=== PATIENT | female | born 1950 | race Caucasian/White ===

== ENCOUNTER 2019-10-08 09:00 | Outpatient (RCR) | payer MEDICARE, SELFPAY ==
--- NOTE | 2019-08-25 14:13 | PTOPEVAL ---
PHYSICAL THERAPY EVALUATION AND PLAN OF CARE Thank you for referring this patient to [facility]. Consuelo is scheduled to be seen 2x/week for 4 weeks. Please review, sign, date and return this plan of care MORRIS. I agree with and certify that the following plan of care is medically necessary. Referring Physician Date Attending Provider: Pablo Ferrer MD Evaluation Outpatient Past Medical History Gastrointestinal History Hx Gastroesophageal Reflux Disease Yes Musculoskeletal History Hx Arthritis Yes Hx Joint Replacement Yes: right TKA 08/18/2019 Hx Orthopedic Surgery Yes: RT KNEE ARTHROSCOPY X2 Endocrine History Hx Hypothyroidism Yes HEENT History Hx Tonsillectomy Yes: A CHILD Hx Other HEENT Disorders Yes: GLASSES Integumentary History Hx Other Skin Disorders Yes: ROSACEA Psychosocial History Hx Anxiety Yes Hx Depression Yes Problem Diagnosis right TKA Onset 08/18/2019 Subjective Information Consuelo is here 1 week s/p right Query Text:As Reported By Patient/ TKA. She reports a moderate Family to high amount of pain, but exhibits a good nature. She is sleeping better than she was when she initially came home from the hospital. Prior Level of Function Activity Level (Last 3 Months) Activity of Daily Living Ability Independent Indoor/Home Mobility Independent Community Mobility Independent Stairs Ability Independent Functional Cognition (Planning, Shopping Independent , Taking Medications) Home Setting Home Type Single Level Environmental Barriers Railing, Bilateral,Stairs, 2-4 Living Situation With Spouse Pain Assessment Right Knee(s) Reported Pain Level 7 Pain Description Aching,Dull Pain Frequency Acute,Continuous Current Pain Intensity 7 Lowest Pain Intensity 5 Greatest Pain Intensity 8 Pain Score Pain Score 7: Self Report Knee Range of Motion Right Knee Flexion Range of Motion - Active 112 Knee Extension Range of Motion - Active 4 Query Text: Hip Strength Right Hip Flexion Strength 4+ Good + Hip Abduction Strength 3+ Fair + Knee Strength Right Knee Flexion Strength 4 Good Knee Extension Strength 4- Good - Palpation nontender throughout; significant bruising noted posterior thigh from groin to knee Extremity Circumference Assessment
--- NOTE | 2019-09-15 10:54 | PTOPEVAL ---
PHYSICAL THERAPY PLAN OF CARE UPDATE AND PROGRESS REPORT Thank you for referring this patient to [facility]. Consuelo has participated in 7 visits of physical therapy. I recommend continuing skilled PT 2x/week for 3 weeks in order to promote optimal gait patter, stair climbing, and optimal strength for rn long term care optimal function. Please review, sign, date and return this plan of care MORRIS. I agree with and certify that the following plan of care is medically necessary. Referring Physician Date Attending Provider: Pablo Ferrer MD Evaluation Information Diagnosis right TKA Onset 08/18/2019 Subjective Information Consuelo is here 4 weeks s/p Query Text:As Reported By Patient/ right TKA. She reports only Family taking one pain medication during the day, but pain is worst at night. She reports some tossing and turning. She is not yet driving. Self Report Pain Assessment Right Knee(s) Reported Pain Level 3 Pain Description Aching,Dull,Tightness Pain Frequency Acute Pain Behaviors Anxious Interventions Used By Clinicians Exercise Lower Extremity Range of Motion Knee Range of Motion Right Knee Flexion Range of Motion - Active 119deg Knee Extension Range of Motion - Active 0deg Hip Strength Right Hip Flexion Strength 5 Normal Hip Abduction Strength 3+ Fair + Knee Strength Right Knee Flexion Strength 5 Normal Knee Extension Strength 4+ Good + Palpation Assessment trigger points to right anterior tibialis; mild scar adhesions, especially distally Gait Assessment Ambulation Assistive Devices Cane Weight Bearing Status - Left Full Weight Bearing Status - Right As Tolerated Maintains Weight Bearing Status Yes Ambulation Ability Independent Gait Pattern Assessment Gait Pattern Circumducted Gait Other Gait Observations mild circumduction on right that corrects upon command; commands needed to push off toe and to bend knee through swing phase Clinical Summary Consuelo is a 69 yo female presenting to outpatient physical therapy 4 weeks s/p right TKA. Consuelo continues to present with mld strength deficits and balance deficits that lend to abnormal gait pattern and and limited ability to perform stair
--- NOTE | 2019-10-08 09:57 | PTOPEVAL ---
PHYSICAL THERAPY DISCHARGE REPORT Thank you for referring this patient to [facility]. I recommend Consuelo discharge from PT at this time. She does have a HEP to progress strengthening. Please review, sign, date and return this Discharge Summary MORRIS. I agree with and certify that the following plan of care is medically necessary. Referring Physician Date Attending Provider: Pablo Ferrer MD Diagnosis right TKA Onset 08/18/2019 Subjective Information Consuelo is here 7 weeks s/p Query Text:As Reported By Patient/ right TKA. Reports that night Family pain is improving and she is feeling more comfortable all the time. Pain Assessment Self Report Pain Assessment Right Knee(s) Reported Pain Level 3 Pain Description Aching Pain Behaviors Anxious Interventions Used By Clinicians Exercise Knee Range of Motion Right Knee Flexion Range of Motion - Active 121 Knee Extension Range of Motion - Active 0 Query Text: Hip Strength Right Hip Flexion Strength 5 Normal Hip Abduction Strength 4- Good - Knee Strength Right Knee Flexion Strength 5 Normal Knee Extension Strength 5 Normal Edema Assessment Right Knee Type Non-Pitting Edema Degree 1+ (2 mm or less) Extremity Circumference Assessment Location Right Body Part Knee Site Descriptor ([place]) suprapatellar Circumference (cm) 40 Noninvolved Side Circumference (cm) 40 Gait Assessment Ambulation Assistive Devices None Weight Bearing Status - Left Full Weight Bearing Status - Right Full Ambulation Distance throughout clinic Query Text:(Feet) Stair Climbing Assessment Stair Climbing Assistive Devices Railings Weight Bearing Status - Left Full Weight Bearing Status - Right As Tolerated Maintains Weight Bearing Status Yes Number of Steps Climbed (Steps) 4 Number of Repetitions (Repetitions) 3 Technique Alternating Steps Stair Climbing Direction Both Up and Down Stair Climbing Ability Independent Ability to Step Over a Curb Independent Stair Climbing Comments encouraged to perform stair climbing at home; laundry is in the basement and I instructed her to start small when carrying items Clinical Summary Consuelo is a 69 yo female presenting to outpatient physical therapy 7 weeks s/p right TKA. Consuelo has met or
== END 2019-10-08 10:26 | disposition home or self-care (01) ==
LOC: ANHPT 09:00
PROVIDERS: PCP Internal Medicine; Visit Provider Orthopaedic Surgery
DX: M17.11 Unilateral primary osteoarthritis, right knee (principal)
CPT/HCPCS: 97110; 97161

== ENCOUNTER 2020-01-19 08:20 | Outpatient (CLI) | payer MEDICARE, SELFPAY ==
--- NOTE | ~2020-01-19 | MM_ITS ---
EXAMINATION: MM screening apolonia BI w jacobo HISTORY: Screening mammogram TECHNIQUE: Craniocaudal and mediolateral oblique 3-D tomosynthesis images were obtained and synthetic 2-D images were generated. CAD analysis was submitted and interpreted. COMPARISON: 04/22/2019, 11/12/2018 diagnostic left mammogram examinations 11/12/2018 limited left breast ultrasound 10/29/2018 bilateral digital screening mammogram 10/30/2017 diagnostic right digital mammogram 10/15/2017 bilateral digital screening mammogram 08/12/2016 bilateral digital screening mammogram BREAST PARENCHYMAL COMPOSITION: The breasts are extremely dense, which lowers the sensitivity of mamm ography. FINDINGS: There are 2 biopsy markers in the right breast and one biopsy marker on the left; history o f prior bilateral benign breast biopsies. Stable mild fibroglandular asymmetry. There are scattered bilateral benign calcifications. There is no evidence of suspicious mass, calcifi cation, or architectural distortion to suggest malignancy in either breast. There has been no suspici ous interval change. IMPRESSION: 1. No mammographic evidence of malignancy. 2. Recommend routine screening mammography in one year. BI-RADS Category 2: Benign finding(s). Reviewed, dictated and finalized at location A.
== END 2020-01-19 08:21 | disposition home or self-care (01) ==
LOC: ANHIMG 08:22
PROVIDERS: PCP Internal Medicine; Visit Provider Nurse Practitioner
DX: Z12.31 Encounter for screening mammogram for malignant neoplasm of breast (principal)
CPT/HCPCS: 77063; 77067

== ENCOUNTER 2020-10-21 11:46 | Outpatient (CLI) | payer MEDICARE, SELFPAY | END 2020-10-21 11:47 | disposition home or self-care (01) | LOC: ANHCOVIDVC 11:46 | PROVIDERS: PCP Internal Medicine | DX: Z23 Encounter for immunization (principal) | CPT/HCPCS: 0001A; 91300 ==

== ENCOUNTER 2020-11-11 11:35 | Outpatient (CLI) | payer MEDICARE, SELFPAY | END 2020-11-11 11:36 | disposition home or self-care (01) | LOC: ANHCOVIDVC 11:35 | PROVIDERS: PCP Internal Medicine | DX: Z23 Encounter for immunization (principal) | CPT/HCPCS: 0002A; 91300 ==

== ENCOUNTER 2020-11-25 09:25 | Outpatient (CLI) | payer MEDICARE, SELFPAY ==
--- NOTE | ~2020-11-25 | MR_ITS ---
EXAMINATION: MR knee LT wo con DATE: 11/25/2020 10:26 INDICATION: Unilateral primary osteoarthritis of the left knee. TECHNIQUE: Magnetic resonance imaging (MRI) of the left knee was performed without intravenous contra st. Sequences included coronal PD-weighted FSE, coronal PD-weighted FS FSE, sagittal T2-weighted FSE , sagittal PD-weighted FS FSE and axial PD weighted fat saturated FSE. COMPARISON: None. FINDINGS: Medial compartment: The posterior horn of the medial meniscus is small with a defect involving the inner free edge which appears truncated consistent with osseous/displacement of meniscal tissue. There is a longitudinal ho rizontal tear plane in the posterior body of the medial meniscus. Extensive full and near full-thickn ess cartilage loss along the anterior to central weightbearing medial femoral condyle with mild irreg ularity to the articular cortex and mild subarticular edema. Additional full thickness cartilage loss at the central to anterior medial tibial plateau where there is mild subarticular edema and suggesti on of early remodeling with slightly increasing concavity to the articular cortex. Lateral compartment: Lateral meniscus is normal. Deep chondral fissuring without degenerative subchondral changes at the a nterior weightbearing lateral femoral condyle. Deep chondral ulceration with subarticular edema along the intercondylar eminence along the medial side of the lateral tibial plateau. Chondral fissuring i nvolving less than 50% the cartilage thickness at the central to posterior lateral tibial plateau. Patellofemoral compartment: Deep chondral ulceration with mild subarticular edema at the medial patellar facet and apical ridge. A severe partial thickness cartilage loss with chondral surface irregularity along the lateral patell ar facet with more prominent underlying subarticular edema and cystic change at the inferior aspect o f the lateral facet. Partial-thickness cartilage loss with mild chondral surface irregularity without degenerative subchondral changes at the trochlear groove and with subtle irregularity to the underly ing articular cortex at the medial trochlea. Ligaments and tendons: The anterior cruciate ligament appears thickened with increased signal extending along the ligament f ibers which appear somewhat lax with posterior bowing and following a shallower course than Blum[place] t line consistent with at least partial tear. The posterior cruciate ligament is normal. The medial c ollateral ligament and fibular collateral ligament complex are normal. Patellar tendon is normal. Sma ll enthesophytes and minimal tendinopathy at the patellar insertion of the distal quadriceps tendon. The visualized medial and lateral hamstring tendons as well as the iliotibial band are normal. Fluid: Physiologic amount of fluid in the joint space. No loose osteochondral bodies identified. Moderate-si zed Lino's cyst measuring 4.6 cm in craniocaudal length and up to 2.0 x 1.4 cm in maximal transaxial dimensions. Osseous/other: Normal marrow signal aside from the previous noted mild degenerative subarticular changes. No fractur e or pathologic marrow replacing process. IMPRESSION: 1. Complex tear of the posterior horn and posterior body of the medial meniscus. 2. Severe medial compartment predominant tricompartmental osteoarthritis with regions of high-grade c hondromalacia in all 3 compartments. 3. At least partial tear of the anterior cruciate ligament. 4. Moderate-sized Lino's cyst. Reviewed, dictated and finalized at location B. IMPRESSION: 1. Complex tear of the posterior horn and posterior body of the medial meniscus . 2. Severe medial compartment predominant tricompartmental osteoarthritis with r egions of high-gr
== END 2020-11-25 09:26 | disposition home or self-care (01) ==
PROVIDERS: PCP Internal Medicine; Visit Provider Orthopaedic Surgery
DX: M17.12 Unilateral primary osteoarthritis, left knee (principal); M71.22 Synovial cyst of popliteal space [Baker], left knee; S83.232A Complex tear of medial meniscus, current injury, left knee, initial encounter; X58.XXXA Exposure to other specified factors, initial encounter
CPT/HCPCS: 73721

== ENCOUNTER → 2021-01-21 14:53 | Outpatient (CLI) | payer MEDICARE, SELFPAY ==
--- NOTE | ~2021-01-21 | MM_ITS ---
EXAMINATION: MM screening apolonia BI w jacobo HISTORY: Screening TECHNIQUE: Craniocaudal and mediolateral oblique 3-D tomosynthesis images were obtained and synthetic 2-D images were generated. CAD analysis was submitted and interpreted. COMPARISON: Comparison to multiple prior studies sequentially, with oldest reviewed study dated 10/15. BREAST PARENCHYMAL COMPOSITION: The breasts are extremely dense, which lowers the sensitivity of mamm ography FINDINGS: There is no evidence of suspicious mass, calcification, or architectural distortion to sugg est malignancy in either breast. There has been no suspicious interval change. IMPRESSION: 1. No mammographic evidence of malignancy. 2. Recommend routine screening mammography in one year. BI-RADS Category 1: Negative Reviewed, dictated and finalized at location A.
== END ==
PROVIDERS: PCP Internal Medicine; Visit Provider Obstetrics & Gynecology Gynecology
DX: Z12.31 Encounter for screening mammogram for malignant neoplasm of breast (principal)
CPT/HCPCS: 77063; 77067

== ENCOUNTER 2021-08-02 07:43 | Outpatient (CLI) | payer MEDICARE, SELFPAY ==
--- NOTE | 2021-08-02 08:49 | ECG_ITS ---
Measurements Intervals [place] Rate: 71 P: 45 AZ: 193 QRS: 24 QRSD: 67 T: 38 QT: 365 QTc: 399 Interpretive Statements SINUS RHYTHM CANNOT RULE OUT SEPTAL INFARCT, AGE INDETERMINATE BASELINE ARTIFACT- I, II, III, AVR, AVL, AVF, V4-V6 ABNORMAL ECG Electronically Signed On 08-02-2021 9:15:46 [employer] by Asher Nichols D.O.
[2021-08-02 11:10] LABS: Eosinophils Absolute Auto 0.1 K/mm3 (0-0.3); Eosinophils Percent Auto 3.4 % (0-4.4); Hematocrit 39.3 % (37.0-47.0); Hemoglobin 12.5 g/dL (12.0-15.0); Immature Granulocyte Absolute 0.01 K/mm3 (0.00-0.031); Immature Granulocyte Percent A 0.3 % (0-0.5); Lymphocytes Absolute Auto 0.47 K/mm3 (0.9-3.2); Lymphocytes Percent Auto 12.3 % (18.3-44.2); Mean Corpuscular HGB Conc 31.8 g/dl (32-36); Mean Corpuscular Hemoglobin 30.6 pg (26-34); Mean Corpuscular Volume 96.3 fl (80-100); Mean Platelet Volume 11.6 fl (7.4-10.4); Monocytes Absolute Auto 0.3 K/mm3 (0.1-0.6); Monocytes Percent Auto 7.8 % (2.6-8.5); Neutrophils Absolute Auto 2.9 K/mm3 (1.3-6.7); Neutrophils Percent Auto 75.2 % (45.5-73.1); Platelet Count Result 221 k/mm3 (150-375); Red Blood Count 4.08 M/mm3 (4.2-5.4); Red Cell Distribution Width 12.9 % (11.5-14.5); White Blood Count 3.8 K/mm3 (4.5-10.0)
[2021-08-02 11:27] LABS: Hemoglobin A1C 5.2 % (<5.7)
[2021-08-02 11:46] LABS: Urine Cotinine NEGATIVE
== END 2021-08-02 07:44 | disposition home or self-care (01) ==
LOC: ANHSURGERY 07:47
PROVIDERS: PCP Internal Medicine; Visit Provider Orthopaedic Surgery
DX: Z01.818 Encounter for other preprocedural examination (principal); M17.12 Unilateral primary osteoarthritis, left knee; R94.31 Abnormal electrocardiogram [ECG] [EKG]; Z51.81 Encounter for therapeutic drug level monitoring; Z79.899 Other long term (current) drug therapy
CPT/HCPCS: 80307; 83036; 85025; 87081; 93005

== ENCOUNTER 2021-08-04 08:56 | Outpatient (CLI) | payer MEDICARE, SELFPAY ==
--- NOTE | ~2021-08-04 | NM_ITS ---
EXAMINATION: NM idalmis stress w perfusion DATE: 08/04/2021 11:22 INDICATION: Abnormal electrocardiogram. Preop. TECHNIQUE: Rest images were obtained following intravenous administration of 10.4 mCi Tc99m tetrofosm in (Myoview). The patient was infused intravenously with Lexiscan (regadenoson). Then, 30.7 mCi Tc99m tetrofosmin (Myoview) was administered intravenously, and stress images were obtained. Data was ganesh nstructed into short axis and horizontal and vertical long axis SPECT images. Gated SPECT images were also obtained. COMPARISON: None. FINDINGS: There is no definite reversible or fixed perfusion abnormality to suggest ischemia or infar ction. There is no segmental wall motion abnormality. Left ventricular ejection fraction measures > 70%. IMPRESSION: 1. No definite ischemia or infarct. 2. Normal left ventricular ejection fraction measuring >70%. Reviewed, dictated and finalized at location A. ESTATE INSTRUCTOR
--- NOTE | 2021-08-04 09:22 | EST_ITS ---
Patient Info Name: Consuelo Borges Age: 71 years : 1950 Gender: Female Ht: 65 in Wt: 153 lbs BSA: 1.80 m2 HR: 73 bpm BP: 126 / 77 mmHg Heart Rhythm: Sinus Rhythm Exam Date: 08/04/2021 9:57 AM Exam Location: [facility] Stress Patient Status: Outpatient Admit Date: 08/04/2021 Staff Ordering Physician: Figueroa Chino DO Attending Provider: Figueroa Chino DO Exercise Technologist: Debi Villalta CT Exercise Physician: Asher Nichols DO Exam Type: CA stress idalmis w NM Study Info Indications Z01.810 - Encounter for preprocedural cardiovascular examination R94.31 - Abnormal electrocardiogram ECG EKG A regadenoson stress test was performed. Summary 1. 1. Negative lexiscan stress test for ischemic ST changes by ECG criteria. 2. 2. Stable hemodynamics throughout the test. 3. 3. Nuclear scan to follow and will be reported separately. Please correlate with it. 4. 4. Patient informed of the above results. Protocol: Lexiscan Stress ECG Details Stage: REST Duration (min): 1 min : 5 sec HR (bpm): 76 SBP (mmHg): 126 DBP (mmHg): 77 Stage: REST Duration (min): 21 min : 59 sec HR (bpm): 82 SBP (mmHg): 126 DBP (mmHg): 77 Stage: STAGE 1 Duration (min): 0 min : 59 sec HR (bpm): 106 SBP (mmHg): 137 DBP (mmHg): 76 Stage: RECOVERY Duration (min): 1 min : 0 sec HR (bpm): 103 SBP (mmHg): 137 DBP (mmHg): 76 Stage: RECOVERY Duration (min): 2 min : 0 sec HR (bpm): 103 SBP (mmHg): 137 DBP (mmHg): 76 Stage: RECOVERY Duration (min): 3 min : 0 sec HR (bpm): 96 SBP (mmHg): 138 DBP (mmHg): 70 Stage: RECOVERY Duration (min): 3 min : 24 sec HR (bpm): 93 SBP (mmHg): 138 DBP (mmHg): 70 Rest HR: 82 bpm Peak HR: 110 bpm Rest Sys BP: 126 mmHg Peak Sys BP: 138 mmHg Max Pred HR: 149 bpm % Max Pred HR: 74 % Target HR: 127 bpm Max RPP: 15,180 bpm*mmHg Termination Reason: Completed protocol Cardiac Symptoms: Shortness of breath Total Time: 1 min : 0 sec Rest Kenney BP: 77 mmHg Peak Kenney BP: 70 mmHg Total Dose: 0.4 mg Resting ECG Sinus rhythm. Stress ECG No ST change. Arrhythmias None. Report Signatures
== END 2021-08-04 08:57 | disposition home or self-care (01) ==
LOC: ANHCARD 08:59
PROVIDERS: PCP Internal Medicine; Visit Provider Internal Medicine
DX: R94.31 Abnormal electrocardiogram [ECG] [EKG] (principal)
CPT/HCPCS: 78452; 93017; A9502; J2785

== ENCOUNTER 2021-08-15 01:30 | Day surgery (SDC) | payer MEDICARE, SELFPAY ==
[2021-08-02 08:08] VITALS: BP 120/80; PULSE 80; RESP 16; TEMP 36.9; O2SAT 97; BMI 25.0
--- NOTE | 2021-08-02 08:23 | PC.NURSE ---
Report to the Outpatient Waiting Room, entrance under the green pavilion located off [facility], at time ____8:30AM___ on date _08/15/21____. OR Time: ___10:30AM . - You and your visitor will be asked a series of questions to screen for COVID 19 for your protection. - A mask is required within the hospital. - Only one visitor is allowed at this time. Patient visitors will be guided where to wait when not with patient. Preoperative COVID Testing Requirements: No COVID Test needed if: (proof is required; if not received patient will have Rapid Test prior to entry) - Patient has received COVID Vaccine at least 14 days prior to procedure date or - Patient has positive COVID test result within last 90 days of surgery date. COVID Test needed if above criteria is not met If not COVID vaccinated a COVID test must be conducted within 72 hours of surgery and patient is asked to isolate self from time of testing until procedure. You will go to the [facility] for your COVID testing. The [facility] site is located at the corner of [address] [facility]. You will only be called if COVID results are positive and your surgeon may reschedule your elective surgery date. Patients may have clear liquids (water, carbonated beverages, clear teas, apple juice) until 3 hours prior to surgery with a maximum of 20 ounces. - No food from midnight until time of surgery - Infants may have breast milk until 4 hours before surgery, infant formula 6 hours prior to surgery. - Children will be allowed to drink immediately following surgery. If applicable, please bring a bottle or sippy cup to assist with drinking. Juice, water, soda, and popsicles are readily available. For infants on formula, please bring formula the day of surgery. Pacifiers are allowed. Take the following medications with a SIP of water the morning of surgery: ___ALPRAZOLAM NEEDED, LEVOTHYROXINE, PAROXETINE Medications to discontinue per physician ALL VITAMINS/SUPPLEMENTS 3 DAYS PRE-OP Date to take last dose 08/12/21 Please no make-up, nail upper sorbian, hairspray, perfume, deodorant, or body powder the day of surgery. No jewelry (including any body piercings) or valuables the day of surgery, leave them at home. Please take a shower or bath the night before, or the morning of, surgery with an antibacterial soap. Wear comfortable, loose fitting clothing. Children are encouraged to wear pajamas. - Jewelry must be removed prior to entering the operating room. Rings and piercings that are not removed may be cut off. - The hospital will not accept responsibility for valuables. - Please leave all valuables, including medications, at home the day of surgery. If you are going home after surgery, a licensed security patrol driver must drive you home. - NO public transportation without another adult. - We recommend that an adult stay with you for 24 hours following discharge. - We also recommend that you do not drive, make important decision, drink alcoholic beverages, or take any drugs that were not prescribed by your health care provider for at least 24 hours after your discharge time. For Pediatric surgeries, we recommend two adults accompany the child home (only one inside the building at this time). Follow any additional instructions given to you from your surgeon. Telephone instructions given to ___PATIENT and asked if any additional questions and then verbalized understanding. Patient advised to call surgeon office or pre surgery nurse liaison [phone] if any additional questions.
[2021-08-15] VITALS (11 sets, daily range): BP systolic 106–138; BP diastolic 46–75; PULSE 66–86; RESP 12–19; TEMP 36.6–37.3; O2SAT 95–100
--- NOTE | ~2021-08-15 | XR_ITS ---
EXAMINATION: XR knee LT 2V DATE: 08/15/2021 14:56 INDICATION: Postoperative evaluation following left total knee arthroplasty. TECHNIQUE: Anteroposterior and lateral views of the left knee were obtained. COMPARISON: None. FINDINGS: Left total knee arthroplasty with patellar resurfacing appears well seated and in near anatomic align ment. No fractures identified. Expected postoperative subcutaneous, intramedullary and intra-articul ar gas. IMPRESSION: 1. Left total knee arthroplasty, negative for postoperative purposes. Reviewed, dictated and finalized at location . [facility]TE [facility]ER
--- NOTE | 2021-08-15 08:19 | WPDANESEPPF ---
Anes - Initial Pre Proc Eval Procedure: Operation Date: 08/15/21 10:30 Proposed Procedures p Left Total Knee Arthroplasty - Pablo Ferrer MD Date/Time: 08/15/21 08:19 Surgeon: Pablo Ferrer MD Pre Op Diagnosis: left knee OA Patient Data Age: 71 Gender: F Height: 1.66 m Weight: 69.4 kg Last Vital Signs Temp 36.9 C 08/02/21 08:08 Pulse 80 08/02/21 08:08 Resp 16 08/02/21 08:08 BP 120/80 08/02/21 08:08 Pulse Ox 97 08/02/21 08:08 Allergies Allergy/AdvReac Type Severity Reaction Status Date / Time adhesive AdvReac Mild itching Verified 08/15/21 10:11 and redness Home Medications Medication Instructions Recorded Confirmed Type metronidazole 0.75 % topical cream 1 applic TOPICAL BID 07/29/19 08/15/21 History pimecrolimus 1 % topical cream 1 applic TOPICAL BID 07/29/19 08/15/21 History [place]-3 1 cap PO DAILY 08/08/19 08/15/21 History PreserVision AREDS-2 1 tablet PO BID 08/08/19 08/15/21 History Systane (PF) 1 drp OPHTHALMIC (EYE) Q12H 08/08/19 08/15/21 History cholecalciferol (vitamin D3) 1,250 1,250 mcg PO DIRECTED cap 07/27/21 08/15/21 History mcg (50,000 unit) capsule doxycycline hyclate 20 mg tablet 20 mg PO BID tablet 07/27/21 08/15/21 History lansoprazole 15 mg delayed 15 mg PO BID tablet 07/27/21 08/15/21 History release,disintegrating tablet paroxetine HCl 40 mg tablet 40 mg PO BID tablet 07/27/21 08/15/21 History alprazolam 0.5 mg PO TID PRN 08/02/21 08/15/21 History levothyroxine 100 mcg PO QAM 08/02/21 08/15/21 History pravastatin 40 mg PO DAILY 08/02/21 08/15/21 History rivaroxaban 10 mg tablet 10 mg PO DAILY #14 tablet 08/09/21 08/15/21 Rx Patient hx anesthesia problems: none Family hx anesthesia problems: none Results Review: All pre-operative results and documents have been reviewed as part of the pre-operative evaluation. [facility] Past Medical History Medical History Anxiety and depression BMI 22.0-22.9, adult Dyslipidemia GERD (gastroesophageal reflux disease) Hypothyroidism Osteoarthritis of left knee Rosacea Screening for colon cancer Vitamin D deficiency Surgical History Surgical History History of bunionectomy History of right knee surgery Arthroscopy x2. History of tonsillectomy Status post total knee replacement Right - July 2019 Family History Family History Mother Family history of diabetes mellitus in first degree relative Family history of coronary artery disease Acute myocardial infarction Father Family history of coronary artery disease Family history of heart disease in male family member before age 55 Sibling Family history of coronary artery disease Family history of hypothyroidism Other Family history of cardiovascular disease Hypertension Social History Social History Social History: The patient lives in [place] with her , Aroldo and their cat. 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 She designates her as her surrogate decision maker and she wishes to be a full code. No alcohol or drug abuse. Smoking status: Never smoker Second hand tobacco smoke exposure: No Alcohol intake: current Drinks per week: 3 Substance use: never Substance use type: does not use Living arrangements: with family Additional living arrangements comments: SCOUT Gender identity (if verbalized by the patient): Female Sexual Orientation (if Verbalized by the Patient): Straight or Heterosexual Spiritual care concerns: Yes (JEHOVAH WITNESS) Anes - Eval Final PreProcedure Day of Procedure 08/15/21 08:19 Patient weight: overweight Heart: regular rate and rhythm Lungs: clear to auscultation and normal air movement Airway: Mallampati scale clas
--- NOTE | 2021-08-15 08:20 | WPDANESPNB ---
Anes - Peripheral Nerve Block Date/Time: 08/15/21 08:20 I have discussed with the patient/family/POA the placement of a peripheral nerve block for post-operative pain management, including associated risks, benefits, complications, and side effects. Alternative methods of post-operative analgesia were detailed. Questions were solicited and answers provided to the satisfaction of the patient/family/POA. Time-Out: A pre-procedural Time-Out was completed immediately before starting the procedure and confirmed: Patient Identification, Site, Procedure, Patient Position and the Availability of Requisite Equipment. Clinical Indications: Acute post-operative pain management requested by the operative surgeon. Nerve Block Insertion Note Anes-nerve block: adductor canal left Patient position: supine Skin prep: chlorhexidine Needle: 22 gauge, stimulating, insulated echogenic needle. Needle length: 80 mm Technique: ultrasound Injectate: bupivacaine 0.5% with epi 5 mcg/ml (30cc - no epi) Observations: tolerated well Complications: none Procedure start time:: 104 Procedure end time:: 1045
[2021-08-15] MEDS: LACTATED RINGERS 1,000 ML 30 ML IV CONT ×2 (09:15→13:53)
[2021-08-15] MEDS: ACETAMINOPHEN 500 MG TABLET 1000 MG PO (09:24)
[2021-08-15] MEDS: TRANEXAMIC ACID 1,000MG/ISO100 1,000 MG/100 ML BAG 200 MG IVPB (09:24)
--- NOTE | 2021-08-15 10:03 | WPDHPUPDATE1 ---
History and Physical Update Update Date/Time: 08/15/21 10:03 History and Physical has been reviewed, including an updated exam of the patient. There are NO changes in the patient's condition. Risks, benefits, and alternatives have been discussed and questions answered. Patient agrees to proceed with procedure.
[2021-08-15 11:06] LABS: Basophils Percent Auto 0.8 % (0.2-1.2); Eosinophils Absolute Auto 0.1 K/mm3 (0-0.3); Eosinophils Percent Auto 1.9 % (0-4.4); Hematocrit 36.7 % (37.0-47.0); Hemoglobin 11.9 g/dL (12.0-15.0); Immature Granulocyte Absolute 0.02 K/mm3 (0.00-0.031); Immature Granulocyte Percent A 0.4 % (0-0.5); Lymphocytes Absolute Auto 0.53 K/mm3 (0.9-3.2); Lymphocytes Percent Auto 10.3 % (18.3-44.2); Mean Corpuscular HGB Conc 32.4 g/dl (32-36); Mean Corpuscular Hemoglobin 30.5 pg (26-34); Mean Corpuscular Volume 94.1 fl (80-100); Mean Platelet Volume 11.4 fl (7.4-10.4); Monocytes Absolute Auto 0.4 K/mm3 (0.1-0.6); Neutrophils Absolute Auto 4.1 K/mm3 (1.3-6.7); Neutrophils Percent Auto 79.6 % (45.5-73.1); Platelet Count Result 164 k/mm3 (150-375); Red Cell Distribution Width 12.6 % (11.5-14.5); White Blood Count 5.1 K/mm3 (4.5-10.0)
[2021-08-15] MEDS: ceFAZolin 2 GM/D5W 50 ML 2 GM/50 ML BAG IVPB ×2 (11:23→18:36)
[2021-08-15] MEDS: ceFAZolin SODIUM 1 GM VIAL IV PUSH (13:06)
--- NOTE | 2021-08-15 14:32 | P.OP_ITS ---
Procedure Note - Detailed Date of Procedure 08/15/21 Pre-op Diagnosis left knee OA Post-op Diagnosis same Procedure Performed Left total knee replacement Surgeon Pablo Ferrer MD [employer] [place] Anesthesia regional and spinal Description of Procedure The patient was identified and proper site identified. In the preop holding area the anesthesia team performed a left sub sartorial block after which the patient was taken to the operating room and transferred to the OR table positioning supine taking care to pad the torso and extremities. After a spinal anesthetic was administered a nonsterile tourniquet was placed high on the left thigh. The left lower extremity was prepped and draped in the usual sterile fashion. The extremity was exsanguinated and with the knee flexed tourniquet was inflated to 300 mmHg remaining up for approximately 57 minutes. An anterior midline incision was made and a modified medial parapatellar approach was used. Infra and suprapatellar fat pads were excised. Patella was resected leaving 15 mm thickness and prepared for the 31 round three peg component. Using the intramedullary guide the distal femur was cut in the proper orientation for the size 62.5 femoral component. Using the extramedullary guide the tibia was cut perpendicular to the long axis protecting collateral ligaments and popliteal structures. It was sized to a 67. Flexion and extension gaps were balanced. Trial reduction was undertaken and the weight-bearing line was noted to passed through the center of the joint. Proximal tibia was drilled and punched in the proper orientation for the real component. Trial components were removed. The bone surfaces were washed with pulsatile lavage and dried. The real components were cemented simultaneously. The knee was held in extension and the patella held clamped until the cement had cured. Excess cement was removed from the joint. After trialing it was determined that the 11 mm insert gave full range of motion from 0-120 degrees of flexion and the patella tracked in the femoral groove with no lift-off. After final lavage the joint the real 11 insert was placed and secured with a locking bar. A Betadine and saline wash was placed into the wound and allowed to sit for approximately 3 minutes and then evacuated. Periarticular tissues were infiltrated with 60 cc of the arthroplasty solution. 1 g of tranexamic acid was left in the wound. The extensor mechanism was repaired with #2 Vicryl suture and 0 looped PDS suture. Subcu was reapproximated with 3-0 Monocryl, 2-0 Stratafix and tissue adhesive for the skin. A sterile dressing was applied. She tolerated the procedure well, was awakened and extubated, transferred to the bed and was taken to recovery area in stable condition. There were no known intraoperative complications. Perioperative antibiotics were administered. Estimated Blood Loss 100 Tourniquet Time 57 Drains No Packing No Pathology none sent Complications No immediate complications Condition stable Disposition PACU
--- NOTE | 2021-08-15 15:20 | ADMGEN ---
This patient, Consuelo Borges, was admitted to [facility]. Patient/family oriented to hospital policies and general routines including ID bracelet, bed and alarms, visiting hours, pain management, procedures, bathroom and other care routines, personal items, smoking policy, room service/diet, and visiting hours. Information on how to activate the Rapid Response Team has been discussed. Patient/Family are encouraged to report perceived risks to care and to ask questions if they do not understand what they are told or what they should do.
--- NOTE | 2021-08-15 15:30 | WPDCN ---
Assessment and Plan Assessment and plan (1) Osteoarthritis of left knee: Qualifiers: Osteoarthritis type: primary Qualified Code(s): M17.12 - Unilateral primary osteoarthritis, left knee Code(s): M17.12 - Unilateral primary osteoarthritis, left knee Status: Chronic Assessment and Plan: Postoperative day 0 status post left total knee replacement. Wound care, pain control, DVT prophylaxis will be deferred to Dr. Ferrer. (2) Dyslipidemia: Code(s): E78.5 - Hyperlipidemia, unspecified Status: Acute Assessment and Plan: Continue statin check LFTs in a.m. (3) Hypothyroidism: Code(s): E03.9 - Hypothyroidism, unspecified Status: Acute Assessment and Plan: Continue levothyroxine and check TSH. (4) Anxiety and depression: Code(s): F41.9 - Anxiety disorder, unspecified; F32.9 - Major depressive disorder, single episode, unspecified Status: Acute Assessment and Plan: No acute issues. Resume paroxetine. (5) Gastroesophageal reflux disease: Code(s): K21.9 - Gastro-esophageal reflux disease without esophagitis Status: Acute Assessment and Plan: Continue PPI. Additional Plan Thank you for allowing us to participate in this patient's care. Please do not hesitate to contact us with any questions. Supervising physician for this medical consultation is Dr. Paramjit Christian. HPI Data of Consult Date/Time: 08/15/21 15:30 Requesting Physician: Pablo Ferrer MD Primary Care Provider: Figueroa Chino DO Consult Narrative Narrative: This is a 71 year old female with osteoarthritis, hypothyroidism, hyperlipidemia, GERD, and depression with anxiety whom the hospitalist service has been consulted for management of her medical conditions postoperatively. She developed pain in her left knee within the past year or less that has not been amenable to conservative outpatient therapy and thus she elected for replacement today. Her surgery was performed under regional and anesthesia with no immediate complications documented an estimated blood loss of 100 mL. Postoperatively she has had a difficult time getting her pain under control and continues to rate her pain 10/10 after receiving Celebrex and hydrocodone 10 mg. She describes a severe aching pain in the back of the knee. She denies paresthesias, skin color, temperature changes distal to the surgical site. She also denies postoperative fever, chills, sweats, chest pain, shortness of breath, nausea, and vomiting. Review of Systems Review of Systems: Twelve systems were reviewed. No recent cold or flu symptoms. No sick contacts. She believes her chronic medical conditions are well controlled on medication. No history of venous thromboembolism. Except as documented, all other systems were reviewed and are negative her [facility] Past Medical History Medical History (Updated 08/15/21 @ 23:02 by Virgen Salas PA-C) Anxiety and depression Dyslipidemia Gastroesophageal reflux disease Hypothyroidism Rosacea Vitamin D deficiency Surgical History Surgical History (Updated 08/15/21 @ 23:02 by Virgen Salas PA-C) History of bunionectomy History of left knee replacement (08/15/21) History of right knee joint replacement (08/18/19) History of right knee surgery Arthroscopy x2. History of tonsillectomy Family History Family History Mother Family history of diabetes mellitus in first degree relative Family history of coronary artery disease Acute myocardial infarction Father Family history of coronary artery disease Family history of heart disease in male family member before age 55 Sibling Family history of coronary artery disease Family history of hypothyroidism Other Family history of cardiovascular disease
[2021-08-15] MEDS: SODIUM CHLORIDE 0.9% IV 1,000 ML 125 ML IV CONT (16:59)
[2021-08-15] MEDS: PARoxetine 20 MG TABLET 40 MG PO (16:59)
[2021-08-15] MEDS: SENNA/DOCUSATE SODIUM TABLET 2 TAB PO (17:00)
[2021-08-15] MEDS: ARTIFICIAL TEARS OPHTH SOLN 15 ML BOTTLE 1 DROP EACH EYE (17:01)
[2021-08-15 17:10] LABS: Anion Gap 8 mmol/L (8-16); Blood Urea Nitrogen 13 mg/dL (7-17); Carbon Dioxide 26 mmol/L (22-30); Chloride 106 mmol/L (98-107); Estimated CRCL calculation 52 ml/min; Estimated Glomerular Filt Rate > 60; Glucose 135 mg/dL (65-110); Potassium 3.8 mmol/L (3.4-5.0); Sodium 140 mmol/L (137-145)
[2021-08-15] MEDS: PANTOPRAZOLE SOD SESQUIHYDRATE 20 MG TAB PO (17:39)
[2021-08-15] MEDS: OPTI-GEN TAB 1 TABLET PO (17:40)
[2021-08-15] MEDS: HYDROcodone/acetaminophen (*CRX) 5-325 MG TABLET 2 TAB PO (17:42)
[2021-08-15] MEDS: CELECOXIB 200 MG CAPSULE PO (18:35)
[2021-08-15] MEDS: MORPHINE SULFATE (*CRX) 2 MG/ML INJ IV PUSH (19:07)
[2021-08-15] MEDS: ALPRAZolam (*CRX) 0.5 MG TABLET PO (21:08)
[2021-08-15] MEDS: HYDROcodone/acetaminophen (*CRX) 5-325 MG TABLET 1 TAB PO (23:06)
[2021-08-15] MEDS: FAMOTIDINE 20 MG TABLET PO (23:07)
[2021-08-16 03:42] VITALS: BP 114/50; PULSE 79; RESP 16; TEMP 36.9; O2SAT 97
[2021-08-16] MEDS: ceFAZolin 2 GM/D5W 50 ML 2 GM/50 ML BAG IVPB ×2 (03:43→10:30)
[2021-08-16] MEDS: HYDROcodone/acetaminophen (*CRX) 5-325 MG TABLET 2 TAB PO (04:04)
[2021-08-16 06:20] LABS: Hematocrit 32.1 % (37.0-47.0); Hemoglobin 10.3 g/dL (12.0-15.0); Immature Platelet Fraction Pct 6.8 % (0.9-11.2); Mean Corpuscular HGB Conc 32.1 g/dl (32-36); Mean Corpuscular Hemoglobin 30.6 pg (26-34); Mean Corpuscular Volume 95.3 fl (80-100); Mean Platelet Volume 11.5 fl (7.4-10.4); Platelet Count Result 138 k/mm3 (150-375); Red Blood Count 3.37 M/mm3 (4.2-5.4); Red Cell Distribution Width 12.6 % (11.5-14.5); White Blood Count 4.8 K/mm3 (4.5-10.0)
[2021-08-16] MEDS: LEVOTHYROXINE SODIUM 100 MCG TABLET PO (06:24)
[2021-08-16 06:52] LABS: Alanine Aminotransferase 15 U/L (4-35); Albumin Level 3.3 g/dL (3.5-5.1); Alkaline Phosphatase 59 U/L (38-126); Anion Gap 1 mmol/L (8-16); Aspartate Amino Transferase 26 U/L (14-36); Bilirubin,Total 0.4 mg/dL (0.2-1.3); Blood Urea Nitrogen 16 mg/dL (7-17); Calcium 8.1 mg/dL (8.4-10.2); Carbon Dioxide 24 mmol/L (22-30); Chloride 108 mmol/L (98-107); Estimated CRCL calculation 58 ml/min; Estimated Glomerular Filt Rate > 60; Glucose 116 mg/dL (65-110); Magnesium 1.9 mg/dL (1.6-2.3); Potassium 3.8 mmol/L (3.4-5.0); Sodium 133 mmol/L (137-145)
[2021-08-16] MEDS: HYDROcodone/acetaminophen (*CRX) 5-325 MG TABLET 1 TAB PO (07:31)
[2021-08-16] MEDS: CELECOXIB 200 MG CAPSULE PO (08:08)
[2021-08-16 08:09] VITALS: BP 117/60; PULSE 84; RESP 16; TEMP 37.1; O2SAT 97
[2021-08-16 08:54] VITALS: BP 115/80; PULSE 80; RESP 16
--- NOTE | 2021-08-16 09:09 | PM.DS ---
DS: Admitting Diagnosis Discharge Date August 15, 2021 Admitting Diagnosis Osteoarthritis left knee DS: Discharge Diagnosis Discharge Diagnosis (1) History of left knee replacement: Onset Date: 08/15/21 Code(s): Z96.652 - Presence of left artificial knee joint Status: Acute (2) Postoperative anemia: Code(s): D64.9 - Anemia, unspecified Status: Acute Assessment and Plan: Patient will be discharged home and will begin her outpatient therapy in one week. She has follow-up with me in two weeks. For the balance of this week she is going to be doing her exercises on her own, with the help of her . Will also have her use iron supplementation for one month upon discharge. DS: Summary Hospital Course Reason for hospitalization: Observation following outpatient procedure. Hospital Course: Following the patient's surgery she was admitted for observation. She began her therapy and made steady progress and will be discharged home postop day one. Overnight stay uneventful. Status at Discharge Cognitive/behavioral status at discharge: Alert and oriented x3 Functional status at discharge: uses cane/walker Overall status at discharge: patient is not back to baseline Exam Const: General: cooperative, no acute distress and alert Nutritional Appearance: other Orientation/consciousness: patient oriented x3 Limitations: no limitations HENMT: Head: normal to inspection Ears: hearing grossly normal bilaterally Face and sinus: face symmetric Mouth: Yes moist mucous membranes Teeth and gingiva: fair dentition Eyes: Alignment and Position: alignment normal and position normal Sclera: sclerae normal Neck: Neck: normal visual inspection and nontender Chest: Chest palpation & inspection: normal inspection of the chest Resp: Effort & Inspection: normal respiratory effort and able to speak in complete sentences GI: Inspection: other (Abdomen nondistended) Skin: General skin exam: normal color Rashes: no rashes Neuro: General: patient oriented x3 Cognition (Neuro): normal cognition Speech: normal speech Gait exam (Neuro): Other gait observations present Extrem: General: normal to inspection and other Other: Exam of the left knee wound shows that the incision is dry. Very little swelling and no bruising appreciated. Neurovascular status unremarkable left lower extremity. Calves negative. Psych: Appearance: grossly normal Mental Status: mental status grossly normal Radiology Reports: Comments: Postoperative left knee x-rays show total knee replacement in satisfactory alignment. DS: Data Data Completed and Pending Labs on day of discharge: Labs from last 24 hours 08/16/21 08/16/21 08/16/21 05:40 05:40 05:40 WBC 4.8 RBC 3.37 L Hgb 10.3 L Hct 32.1 L MCV 95.3 MCH 30.6 MCHC 32.1 RDW 12.6 Plt Count 138 L MPV 11.5 H Immature Gran % (Auto) Neut % (Auto) Lymph % (Auto) [place] % (Auto) Eos % (Auto) Baso % (Auto) Lymph # (Auto) [place] # (Auto) Eos # (Auto) Baso # (Auto) Abs Immat Gran (auto) Absolute Neuts (auto) Absolute Nucleated RBC Nucleated RBC % % Immature Plt Fraction 6.8 Sodium 133 L Potassium 3.8 Chloride 108 H Carbon Dioxide 24 Anion Gap 1 L BUN 16 Creatinine 0.70 Estim Creat Clear Calc 58 Estimated GFR > 60 Glucose 116 H Calcium 8.1 L Magnesium 1.9 Total Bilirubin 0.4 AST 26 ALT 15 Alkaline Phosphatase 59 Total Protein 5.0 L Albumin 3.3 L TSH (Reflex) 2.100 08/15/21 08/15/21 16:54 11:00 WBC 5.1 RBC 3.90 L Hgb 11.9 L Hct 36.7 L MCV 94.1 MCH 30.5 MCHC 32.4 RDW 12.6 Plt Count 164 MPV 11.4 H Immature Gran % (Auto) 0.4 Neut % (Auto) 79.6 H Lymph % (Auto) 10.3 L [place] % (Auto) 7.0 Eos % (Auto) 1.9 Baso % (Auto) 0.8 Lymph # (Auto) 0.53 L [place] # (Auto) 0.4 Eos # (Auto) 0.1 Baso # (Aut
--- NOTE | 2021-08-16 10:01 | PM.IMPN ---
Progress Note: A&P Assessment and Plan (1) Osteoarthritis of left knee: Qualifiers: Osteoarthritis type: primary Qualified Code(s): M17.12 - Unilateral primary osteoarthritis, left knee Code(s): M17.12 - Unilateral primary osteoarthritis, left knee Status: Chronic Assessment and Plan: Postoperative day 0 status post left total knee replacement Wound care, pain control, DVT prophylaxis will be deferred to Dr. Ferrer. (2) Dyslipidemia: Code(s): E78.5 - Hyperlipidemia, unspecified Status: Acute Assessment and Plan: Continue statin LFTs wnll (3) Hypothyroidism: Code(s): E03.9 - Hypothyroidism, unspecified Status: Acute Assessment and Plan: Continue levothyroxine and check TSH (4) Anxiety and depression: Code(s): F41.9 - Anxiety disorder, unspecified; F32.9 - Major depressive disorder, single episode, unspecified Status: Acute Assessment and Plan: No acute issues Continue paroxetine (5) Gastroesophageal reflux disease: Code(s): K21.9 - Gastro-esophageal reflux disease without esophagitis Status: Acute Assessment and Plan: Continue PPI Additional Plan Pt to d/c today Subjective Date/time seen: 08/16/21 10:01 Interval history: Pt seen this a.m.; labs, vs reviewed; no acute events overnight; pain is controlled; working well with therapy Review of Systems Review of Systems: All systems reviewed & are unremarkable except as noted in HPI and below Exam Narrative: General: Well-developed elderly female sitting up in bed in moderate pain. HEENT: Wearing corrective lenses. EOMI. Sclerae anicteric. Oral mucosa moist. Neck: Supple. Respiratory: Lungs are clear to auscultation bilaterally. Cardiovascular: Regular rate and rhythm with S1-S2. Gastrointestinal: Abdomen is soft, nontender, and nondistended with positive bowel sounds. Skin: Warm and dry. No rash or lesions on limited exam. Extremities: No cyanosis, clubbing, or edema. Radial and pedal pulses intact. Musculoskeletal: Left knee dressing is clean, dry, and intact. Neurological: Alert. No gross focal deficits to casual conversation. Psychiatric: Pleasant and cooperative with normal mood and affect. Judgment and insight intact. Objective Data Vital Signs Vital Signs: Vital Signs - 24 hr 08/15/21 13:53 08/15/21 14:10 08/15/21 14:25 Temperature 36.6 C Pulse Rate 86 75 74 Respiratory Rate 14 13 18 Blood Pressure 138/75 132/66 124/70 Pulse Oximetry 96 98 97 08/15/21 14:40 08/15/21 14:55 08/15/21 15:06 Temperature Pulse Rate 68 71 66 Respiratory Rate 15 13 12 Blood Pressure 127/68 138/63 133/72 Pulse Oximetry 97 98 97 08/15/21 15:30 08/15/21 17:30 08/15/21 19:30 Temperature 36.7 C 37.3 C Pulse Rate 75 85 79 Respiratory Rate 16 16 19 Blood Pressure 124/58 L 131/68 Pulse Oximetry 95 100 98 08/15/21 20:07 08/15/21 23:09 08/16/21 03:42 Temperature 37.3 C 37.1 C 36.9 C Pulse Rate 79 81 79 Respiratory Rate 19 17 16 Blood Pressure 126/63 106/46 L 114/50 L Pulse Oximetry 98 98 97 08/16/21 08:09 Temperature 37.1 C Pulse Rate 84 Respiratory Rate 16 Blood Pressure 117/60 Pulse Oximetry 97 Intake/Output Intake/Output: Intake & Output 08/13/21 08/14/21 08/15/21 08/16/21 23:59 23:59 23:59 23:59 Intake Total 250 1675 Output Total 140 Balance 110 1675 Meds/Results Medications: Active Medications Generic Name Dose Route Start Last Admin Trade Name Freq PRN Reason Stop Dose Admin Acetaminophen 1,000 mg 08/15/21 15:09 Acetaminophen 500 Mg Tablet PO Q6H PRN Pain Rated 1-3 Hydrocodone Bitart/Acetaminophen 1 tab 08/15/21 15:09 08/16/21 07:31 Hydrocodone/Acetaminophen (*Crx) 5-325 Mg Tablet PO 1 tab Q4H PRN Administration Pain Rated 4-6 Hydrocodone Bitart/Acetaminophen 2 tab 08/15/21 15:09 08/16/21 04:04 Hydrocodone/Acetaminophen (*Crx) 5-325
--- NOTE | 2021-08-16 10:02 | WPDANESPN ---
Anes - Prog Note Post-Op Date/Time: 08/16/21 10:02 Cardiovascular status: normal Respiratory status: normal Airway patency: baseline Mental status: baseline Post-Op hydration status: normal Vital Signs: Last Vital Signs Temp 98.8 F 08/16/21 08:09 Pulse 84 08/16/21 08:09 Resp 16 08/16/21 08:09 BP 117/60 08/16/21 08:09 Pulse Ox 97 08/16/21 08:09 Pain Score (VAS): 0/10 I/O: Intake & Output 08/15/21 08/16/21 08/16/21 23:59 07:59 15:59 Intake Total 50 1475 200 Balance 50 1475 200 Laboratory Tests 08/16/21 05:40 08/16/21 05:40 08/15/21 08/15/21 08/16/21 11:00 16:54 05:40 WBC 5.1 4.8 RBC 3.90 L 3.37 L Hgb 11.9 L 10.3 L Hct 36.7 L 32.1 L MCV 94.1 95.3 MCH 30.5 30.6 MCHC 32.4 32.1 RDW 12.6 12.6 Plt Count 164 138 L MPV 11.4 H 11.5 H Immature Gran % (Auto) 0.4 Neut % (Auto) 79.6 H Lymph % (Auto) 10.[address] [place] % (Auto) 7.0 Eos % (Auto) 1.9 Baso % (Auto) 0.8 Lymph # (Auto) 0.[address] [place] # (Auto) 0.4 Eos # (Auto) 0.1 Baso # (Auto) 0.0 Abs Immat Gran (auto) 0.02 Absolute Neuts (auto) 4.1 Absolute Nucleated RBC 0.0 Nucleated RBC % 0.0 % Immature Plt Fraction 6.8 Sodium 140 Potassium 3.8 Chloride 106 Carbon Dioxide 26 Anion Gap 8 BUN 13 D Creatinine 0.80 Estim Creat Clear Calc 52 Estimated GFR > 60 Glucose 135 H Calcium 9.0 Magnesium Total Bilirubin AST ALT Alkaline Phosphatase Total Protein Albumin TSH (Reflex) 08/16/21 08/16/21 05:40 05:40 WBC RBC Hgb Hct MCV MCH MCHC RDW Plt Count MPV Immature Gran % (Auto) Neut % (Auto) Lymph % (Auto) [place] % (Auto) Eos % (Auto) Baso % (Auto) Lymph # (Auto) [place] # (Auto) Eos # (Auto) Baso # (Auto) Abs Immat Gran (auto) Absolute Neuts (auto) Absolute Nucleated RBC Nucleated RBC % % Immature Plt Fraction Sodium 133 L Potassium 3.8 Chloride 108 H Carbon Dioxide 24 Anion Gap 1 L BUN 16 Creatinine 0.70 Estim Creat Clear Calc 58 Estimated GFR > 60 Glucose 116 H Calcium 8.1 L Magnesium 1.9 Total Bilirubin 0.4 AST 26 ALT 15 Alkaline Phosphatase 59 Total Protein 5.0 L Albumin 3.3 L TSH (Reflex) 2.100 Patient Feedback: Patient satisfied with anesthetic care.
--- NOTE | 2021-08-16 13:00 | PC.NURSE ---
1015 I the registered nurse, Alexandro Steen, forgot to give patient morning medications. PT/OT in there this morning and breakfast i mistakenly forgot and patient was discharged at 1055. Patient was anxious and was ready to leave as soon as she could.
== END 2021-08-16 10:55 | disposition home or self-care (01) ==
LOC: ANHSURGERY 14:28 → ANHSUROVER 15:15
PROVIDERS: Physician Assistant; PCP Internal Medicine; Visit Provider Orthopaedic Surgery
PROC: (CPT 27447; principal; 2021-08-15 10:30)
DX: M17.12 Unilateral primary osteoarthritis, left knee (principal); D64.89 Other specified anemias; G89.18 Other acute postprocedural pain; E78.5 Hyperlipidemia, unspecified; E03.9 Hypothyroidism, unspecified; E55.9 Vitamin D deficiency, unspecified; F41.8 Other specified anxiety disorders; L71.9 Rosacea, unspecified
CPT/HCPCS: 27447; 64447; 36415; 73560; 80048; 80053; 83735; 84443; 85025; 85027; 85055; 97110; 97116; 97161; 97165; A9270; C1713; C1776; J0171; J0690; J2250; J2270; J2704; J2795; J3010; J7030; J7120

== ENCOUNTER 2021-09-20 08:00 | Outpatient (RCR) | payer MEDICARE, SELFPAY ==
--- NOTE | 2021-08-22 09:22 | PTOPEVAL ---
PHYSICAL THERAPY EVALUATION AND PLAN OF CARE 08-22-21 Thank you for referring Consuelo Borges to [facility], S/P L TKR. She patient is scheduled to be seen for therapy? 3x/week for 2 weeks, then 2x/wk for 2 weeks. Please review, sign, date and return this plan of care MORRIS. I agree with and certify that the following plan of care is medically necessary. Referring Physician Date Attending Provider: Pablo Ferrer MD *PT Outpatient Evaluation Document 08/22/21 08:05 FELICITY (Rec: 08/22/21 09:11 FELICITY [id number]) Past Medical History Neurological History Hx Neurological Disorders No Significant History Cardiovascular History Hx Hypercholesterolemia Yes: meds Respiratory History Hx Respiratory Disorders No Significant History Gastrointestinal History Hx Gastroesophageal Reflux Disease Yes Genitourinary History Hx Genitourinary Disorders No Significant History Musculoskeletal History Hx Arthritis Yes Hx Joint Replacement Yes: right TKA 08/18/2019 Hx Orthopedic Surgery Yes: RT KNEE ARTHROSCOPY X2 Hx Other Musculoskeletal Disorders Yes: L ankle tendonitis Hematological History Hx Hematological Disorders No Significant History Endocrine History Hx Hypothyroidism Yes: meds HEENT History Hx Tonsillectomy Yes: A CHILD Hx Other HEENT Disorders Yes: GLASSES Integumentary History Hx Other Skin Disorders Yes: ROSACEA, PRECANCEROUS SPOT REMOVED FROM RT HAND IN PAST Reproductive History Hx Post Menopausal Yes Hx Other Reproductive Disorders Yes: BENIGN BREAST BXS IN PAST Psychosocial History Hx Anxiety Yes Hx Depression Yes Pain History Has Past Pain Affected Your Daily Life Yes: LT KNEE Anesthesia History Hx Anesthesia Reactions No Significant History Other History Hx Implanted Device Yes: R TKR, L TKR Evaluation Information Problem Diagnosis L TKR Onset 08-15-21 Subjective Information since home, have home Query Text:As Reported By Patient/ exercises from hospital-- Family supine and sitting exercises, but only done a few times, the sitting knee bend ones; use wheeled walker and doing OK in home, not done basement stairs yet; Prior Level of Function Activity Level (Last 3 Months) Occupation retired Activity of Daily Living Ability Independent Indoor/Home Mobility Independent Community Mobility Independent Stairs Ability Independent Functional Cognition (Planning, Shopping Independent , Taking Medications)
--- NOTE | 2021-09-19 13:37 | PCPTNOTE ---
Addendum entered by Emerald Finley, PT 09/19/21 15:44: pt showed up at the wrong time today and missed her appt Original Note: pt did not show for today's reevaluation appt; unable to call pt due to our phone system down;
--- NOTE | 2021-09-20 08:47 | PTOPEVAL ---
PHYSICAL THERAPY DISCHARGE 09-20-21 Refer to the clinical summary below, for her status today, compared to the initial evaluation. Discharge from PT services at this time. Consuelo is to continue with her home exercises and progress her activity tolerance. Thank you for referring Consuelo Borg[facility] Please review, sign, date and return this Discharge Report MORRIS. I agree with and certify that the following plan of care is medically necessary. Referring Physician Date Attending Provider: Pablo Ferrer MD Document 09/20/21 08:00 FELICITY (Rec: 09/20/21 08:47 FELICITY [id number]) Assessment Status Discharge Subjective Information Consuelo reports: is not using Query Text:As Reported By Patient/ the cane or walker anymore; Family is going shopping and doing OK at the store with walking; is doing all the exercises; does not want her to go to basement--has fallen on them before; have gone out and been OK on steps at library; feel like ready to be done with therapy; Pain Assessment Timing of Pain Assessment Timing of Pain Assessment Assessment Pain Scale Pain Scale Used Numeric (1 - 10) Self Report Pain Assessment Left Knee(s) Reported Pain Level 0 Pain Description Aching Pain Frequency Chronic,Intermittent Lowest Pain Intensity 0 Greatest Pain Intensity 3 Other Pain Aggravating Factors when try to fall asleep problems getting comfortable Pain Score Pain Score 0: Self Report Additional Pain Score Comments reports activity walk/stand tolerance of 2 hours with home tasks; discussed sleep position-- tends to sleep on her side in position/flexed hips and knees, uses pillow between legs; reinforced ice prior to bed and she is taking tylenol at bedtime; Interventions Used Interventions Used By Clinicians Education,Exercise Pain Relief Interventions Used By Ice,Inactivity/Rest Patient Other Alleviating Interventions take extra strength tylenol at night to assist with sleeping Lower Extremity Range of Motion General Lower Extremity Range of Motion Gross Lower Extremity Range of Motion sitting active ROM L knee (-5') Comments to 128'; Lower Extremity Muscle Strength Testing General Lower Extremity Strength Gross Lower
== END 2021-09-20 14:30 | disposition home or self-care (01) ==
LOC: ANHPT 08:00
PROVIDERS: PCP Internal Medicine; Visit Provider Orthopaedic Surgery
DX: Z47.1 Aftercare following joint replacement surgery (principal); Z96.652 Presence of left artificial knee joint
CPT/HCPCS: 97014; 97110; 97116; 97140; 97161; 97530; G0283

== ENCOUNTER 2021-10-26 07:57 | Outpatient (CLI) | payer MEDICARE, SELFPAY ==
--- NOTE | ~2021-10-26 | DEXA_ITS ---
Bone Density Report Name: BELINDA TOM Age: 71 Sex: Female Ethnicity: White Date of : 1950 Indication: postmenopausal; height loss; Referring Provider: Emily Dietz Study: Bone densitometry was performed. Exam Date: October 26, 2021 Accession number: [id number] Bone Density: Region BMD T-score Z-score Classification AP Spine (L1-L4) 0.888 -1.4 0.7 Osteopenia Femoral Neck (Left) 0.604 -2.2 -0.3 Osteopenia Total Hip (Left) 0.750 -1.6 0.0 Osteopenia Total Hip Bilateral Avg 0.737 -1.7 -0.1 Osteopenia Femoral Neck (Right) 0.617 -2.1 -0.2 Osteopenia Total Hip (Right) 0.724 -1.8 -0.2 Osteopenia World Health Organization criteria for BMD impression classify patients as: Normal (T-score at or above -1.0), Osteopenia (T-score between -1.0 and -2.5), or Osteoporosis (T-score at or below -2.5). 10-year Fracture Risk(1): Major Osteoporotic Fracture 13% Hip Fracture 2.9% Reported Risk Factors: [place] (), Neck BMD=0.604, BMI=24.3 (1) FRAX(R) Version 3.08. Fracture probability calculated for an untreated patient. Fracture probability may be lower if the patient has received treatment. Clinical Information Provided by Patient: Has used the following medications: Vitamin D Patient maximum height was 66 Menopause Age: 48 No regular weight bearing exercise Onset of menses at age 13 Number of children 0 Impression: The patient has low bone mass, based on the Left Femoral Neck T-score. The patient has an estimated ten-year risk of hip fracture of 2.9% and an estimated ten-year risk of major fracture of 13%, based on the WHO FRAX algorithm. Discussion: BONE DENSITY IS LOW AT ONE OR MORE SKELETAL SITES. This patient's lowest T-score is low at one or more skeletal sites. It meets the World Health Organization's (WHO) criteria for ?low bone mass? (T-score between -1.0 and -2.5). The patient's 10-year risk of fracture as calculated by FRAX is less than the threshold where pharmacological therapy is recommended by the National Osteoporosis Foundation (NOF). However, all treatment decisions require clinical judgment and consideration of individual patient factors, including patient preferences, comorbidities, previous drug use, risk factors not captured in the FRAX model (e.g., frailty, falls, vitamin D deficiency, increased bone turnover, interval significant decline in bone density) and possible under or overestimation of fracture risk by FRAX. The patient should follow a healthful lifestyle (good nutrition with adequate calcium and vitamin D, and appropriate weight-bearing exercise). Follow-Up: Consider repeating this study in 2 to 3 years to reassess this patient's status, or sooner if there is some new clinical indication. Reported by: FE on 10/26/2021 8:22:00 AM.
== END 2021-10-26 07:58 | disposition home or self-care (01) ==
LOC: ANHIMG 07:59
PROVIDERS: PCP Internal Medicine; Visit Provider Nurse Practitioner
DX: Z78.0 Asymptomatic menopausal state (principal); M85.88 Other specified disorders of bone density and structure, other site; M85.851 Other specified disorders of bone density and structure, right thigh; M85.852 Other specified disorders of bone density and structure, left thigh
CPT/HCPCS: 77080

== ENCOUNTER → 2022-01-23 10:12 | Outpatient (CLI) | payer MEDICARE, SELFPAY ==
--- NOTE | ~2022-01-23 | MM_ITS ---
EXAMINATION: MM screening [facility] BI w jacobo HISTORY: Screening mammogram TECHNIQUE: Craniocaudal and mediolateral oblique 3-D tomosynthesis images were obtained and synthetic 2-D images were generated. CAD analysis was submitted and interpreted. COMPARISON: 01/21/2021, 01/19/2020, 10/29/2018 BREAST PARENCHYMAL COMPOSITION: The breasts are extremely dense, which lowers the sensitivity of mamm ography. FINDINGS: There is no suspicious mass, calcification, or architectural distortion to suggest malignan cy in either breast. There has been no suspicious interval change. IMPRESSION: 1. No mammographic evidence of malignancy. 2. Recommend routine screening mammography in one year. BI-RADS Category 1: Negative Reviewed, dictated and finalized at location A.
== END ==
PROVIDERS: PCP Internal Medicine; Visit Provider Nurse Practitioner
DX: Z12.31 Encounter for screening mammogram for malignant neoplasm of breast (principal)
CPT/HCPCS: 77063; 77067

== ENCOUNTER → 2022-05-16 09:48 | Outpatient (CLI) | payer MEDICARE, SELFPAY ==
--- NOTE | ~2022-05-16 | XR_ITS ---
XR knee LT 3V 05/16/2022 10:01 Indication: Left knee pain Procedure: 3 views left knee Comparison: Comparison to multiple prior studies sequentially, with oldest reviewed study dated 11/2018. Findings: There is a left total knee arthroplasty. No fracture, subluxation or dislocation. No signif icant joint effusion. No foreign bodies. Impression: 1: No acute bone or joint abnormality. Reviewed, dictated and finalized at location B. Impression: 1: No acute bone or joint abnormality.
== END ==
PROVIDERS: PCP Orthopaedic Surgery; Visit Provider Nurse Practitioner
DX: M25.562 Pain in left knee (principal); Z96.652 Presence of left artificial knee joint
CPT/HCPCS: 73562

== ENCOUNTER → 2023-03-27 12:44 | Outpatient (CLI) | payer MEDICARE, SELFPAY ==
--- NOTE | ~2023-03-27 | MM_ITS ---
EXAMINATION: MM screening [facility] BI w jacobo HISTORY: Screening mammogram TECHNIQUE: Craniocaudal and mediolateral oblique 3-D tomosynthesis images were obtained and synthetic 2-D images were generated. CAD analysis was submitted and interpreted. COMPARISON: 01/23/2022, 01/21/2021, 01/19/2020 BREAST PARENCHYMAL COMPOSITION: The breasts are extremely dense, which lowers the sensitivity of mamm ography. FINDINGS: No suspicious mass, calcification, or architectural distortion are identified in either dayne ast to suggest malignancy. There has been no suspicious interval change. IMPRESSION: 1. No mammographic evidence of malignancy. 2. Recommend routine screening mammography in one year. BI-RADS Category 1: Negative Reviewed, dictated and finalized at location A.
== END ==
PROVIDERS: PCP Nurse Practitioner; Visit Provider Nurse Practitioner
DX: Z12.31 Encounter for screening mammogram for malignant neoplasm of breast (principal)
CPT/HCPCS: 77063; 77067

== ENCOUNTER 2024-09-15 12:52 | Outpatient (CLI) | payer MEDICARE, SELFPAY ==
--- NOTE | ~2024-09-15 | MM_ITS ---
EXAMINATION: MM screening [facility] BI w jacobo HISTORY: Screening TECHNIQUE: Craniocaudal and mediolateral oblique 3-D tomosynthesis images were obtained and synthetic 2-D images were generated. CAD analysis was submitted and interpreted. COMPARISON: Comparison to multiple prior studies sequentially, with oldest reviewed study dated 08/2019. BREAST PARENCHYMAL COMPOSITION: Dense: The breasts are extremely dense, which lowers the sensitivity of mammography. FINDINGS: There is no evidence of suspicious mass, calcification, or architectural distortion to sugg est malignancy in either breast. There has been no suspicious interval change. IMPRESSION: 1. No mammographic evidence of malignancy. 2. Recommend routine screening mammography in one year. BI-RADS Category 1: Negative Reviewed, dictated and finalized at location A. 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
== END 2024-09-15 12:53 | disposition home or self-care (01) ==
LOC: MICIMG 12:54
PROVIDERS: PCP Family Medicine; Visit Provider Nurse Practitioner
DX: Z12.31 Encounter for screening mammogram for malignant neoplasm of breast (principal)
CPT/HCPCS: 77063; 77067

== ENCOUNTER 2025-06-02 14:55 | Outpatient (CLI) | payer MEDICARE, SELFPAY ==
--- NOTE | ~2025-06-02 | DEXA_ITS ---
Bone Density Report Name: BELINDA TOM Age: 75 Sex: Female Ethnicity: White Date of : 1950 Indication: osteopenia; height loss; Referring Provider: DONITA AHUJA Study: Bone densitometry was performed. Exam Date: June 02, 2025 Accession number: [id number] Bone Density: Region BMD T-score Z-score Classification AP Spine(L1-L4) 0.945 -0.9 1.5 Normal Femoral Neck (Left) 0.561 -2.6 -0.5 Osteoporosis Total Hip (Left) 0.683 -2.1 -0.3 Osteopenia Femoral Neck (Right) 0.621 -2.0 0.0 Osteopenia Total Hip (Right) 0.707 -1.9 -0.1 Osteopenia Total Hip Mean 0.695 -2.0 -0.2 Osteopenia World Health Organization criteria for BMD impression classify patients as: Normal (T-score at or above -1.0), Osteopenia (T-score between -1.0 and -2.5), or Osteoporosis (T-score at or below -2.5). 10-year Fracture Risk: FRAX not reported because: Some T-score for Spine Total or Hip Total or Femoral Neck at or below -2.5 Previous Exams: -- Region Exam Age BMD T-score BMD Change BMD Change Date g/cm2 vs Baseline vs Previous -- AP Spine (L1-L4) 06/02/2025 75 0.945 -0.9 1.4%# 6.4%* 10/26/2021 71 0.888 -1.4 -4.7%# -2.1%# 04/06/2017 66 0.907 -1.3 -2.6%* -3.1%* 05/15/2012 61 0.936 -1.0 0.4% 0.4% 09/20/2005 55 0.932 -1.0 Total Hip(Left) 06/02/2025 75 0.683 -2.1 -25.7%# -8.9%* 10/26/2021 71 0.750 -1.6 -18.4%# -10.0%# 04/06/2017 66 0.833 -0.9 -9.3%* -1.2% 05/15/2012 61 0.844 -0.8 -8.2%* -8.2%* 09/20/2005 55 0.919 -0.2 Total Hip(Right) 06/02/2025 75 0.707 -1.9 -21.1%# -2.3% 10/26/2021 71 0.724 -1.8 -19.2%# -6.8%# 04/06/2017 66 0.777 -1.4 -13.3%* -3.8%* 05/15/2012 61 0.807 -1.1 -9.9%* -9.9%* 09/20/2005 55 0.896 -0.4 -- *Denotes significance at 95% confidence level, LSC for AP Spine = 0.022 g/cm2, LSC for Total Hip = 0.027 g/cm2 # Denotes dissimilar scan types or analysis methods Clinical Information Provided by Patient: Has used the following medications: Fosamax (i.e. alendronate), HRT (i.e. estrogen/hormone therapy), Vitamin D Patient maximum height was 66 Menopause Age: 54 No regular weight bearing exercise Drinks caffeinated beverages Onset of menses at age 15 Number of children 0 Impression: The patient has osteoporosis, based on the Left Femoral Neck T-score. The BMD for the Total Hip(Left) decreased, changing by -8.9% since the last DXA exam. Discussion: INCREASED RISK OF FRACTURE. BONE DENSITY IS UNDESIRABLY LOW AT ONE OR MORE SKELETAL SITES, CONSISTENT WITH POSTMENOPAUSAL OSTEOPOROSIS. This patient's lowest T-score meets the World Health Organization's (WHO) criteria for osteoporosis at one or more sites (T-score -2.5 or below). In untreated patients, the risk of osteoporotic fracture increases approximately two-fold for each 1.0 SD decrease in T-score. Low bone density is not the only risk factor for fracture; also consider factors such as patient's age, frailty or poor health, risk of falling, risk of injury, previous osteoporotic fracture, family history of osteoporosis, cigarette smoking, low body weight, etc. Not everyone with low bone mineral density has osteoporosis; osteomalacia and other metabolic bone disorders should also be considered. Patients who have osteoporosis should be evaluated for specific diseases and conditions (secondary causes) that may cause or contribute to bone loss. The [place] [employer]ocr[employer] (AACE) and National Osteoporosis Foundation (NOF) recommend pharmacologic intervention for all postmenopausal women whose T-score is in this range. The patient should follow a healthful lifestyle (good nutrition with adequate calcium and vitamin D, and appropriate weight-bearing exercise). Follow-Up: Consider a repeat BMD and Vertebral Fracture Assessment (VFA) exam in 2 years or sooner if medically necessary, to reassess this patient's status. Reported by: IRINA on 06/02/2025 3:22:00 PM. Reviewed, dictated and finalized at location A.
== END 2025-06-02 14:56 | disposition home or self-care (01) ==
LOC: MICIMG 14:57
PROVIDERS: PCP Obstetrics & Gynecology Gynecology; Visit Provider Family Medicine
DX: M81.0 Age-related osteoporosis without current pathological fracture (principal); M85.89 Other specified disorders of bone density and structure, multiple sites; F41.9 Anxiety disorder, unspecified; F32.9 Major depressive disorder, single episode, unspecified; E03.9 Hypothyroidism, unspecified; E78.2 Mixed hyperlipidemia; K21.9 Gastro-esophageal reflux disease without esophagitis; Z79.899 Other long term (current) drug therapy; Z78.0 Asymptomatic menopausal state
CPT/HCPCS: 77080